=== PATIENT | female | born 1985 | race African-American/Black ===

== ENCOUNTER 2017-09-13 01:35 | Inpatient (IN) | payer OTHER ==
[~2017-09-13] VITALS: Ht 160 cm; Wt 116.6 kg
[~2017-09-13 01:35] MED LIST: AFRIN30 ML NASB; AZITHROMYCIN250 M1 PO; BACTRIM DS TAB1 EACH PO; CIPRO 500MG TA500 MG PO; CYCLOBENZAPRINE10 M1 PO; DEXAMETHASONE4 M1 PO; DOXYCYCLINE MO100 M2 PO; EXCEDRIN MIGRA1 EAC1 PO; FLONASE ALLERG9.9 ML NASB; FLUCONAZOLE150 MG PO; HYDROCODON-ACE1 EAC2 PO; IBUPROFEN800 M1 PO; LEVAQUIN500 M1 PO; MACROBID100 MG PO; MIRENA1 EACH; NAPROSYN500 M1 PO; PREDNISONE50 M1 PO; PROAIR HFA8.5 GM INH; TESSALON PERLE100 M1 PO; TRAMADOL HCL50 M1 PO; VITAMIN D250000 UNIT PO; ZITHROMAX250 M2 PO
--- NOTE | 2017-09-13 14:30 | Admission Core Measures ---
Acute Coronary Syndrome (CM) ACS Core Measures Acute Coronary Syndrome Diagnosis No Congestive Heart Failure (NEW) CHF Core Measures Congestive Heart Failure Diagnosis No Cerebrovascular Accident CVA Core Measures CVA/TIA Diagnosis No Venous Thromboembolism VTE Core Jovanny (View Protocol) VTE Risk Factors Surgery No Mechanical VTE Prophylaxis d/t N/A MechProphylax Ordered No VTE Pharm Prophylaxis d/t NA PharmProphylax ordered Problem List As ranked by this Provider includes Assessment & Plan 1. S/P laparoscopic sleeve gastrectomy 2. Morbid obesity HOME MEDS Home Med List Azithromycin (Zithromax) 250 MG TABLET 1 DP PO AD pharyngitis Ergocalciferol (Vitamin D2) (Vitamin D2) 50,000 UNIT CAPSULE 1 CAP PO QSUN SUPPLEMENT (Reported)
--- NOTE | 2017-09-13 14:58 | Surg Short-stay <48hrs Dis Sum ---
See Addendum Visit Information Visit Dates Admission Date: 09/13/17 Discharge Date: 09/15/17 Surgical Short Stay DC Summary Admission Diagnosis: MORBID OBESITY Final Diagnosis: MORBID OBESITY Procedure(s): Laparoscopic sleeve gastrectomy (09/13/17) Summary/Significant Findings: Electively scheduled laparoscopic sleeve gastrectomy 09/13/[address]Craig Casas for history of morbid obesity. Stage 1 diet started post-operatively. Upper gi study post-op day#1 to rule out leak / obstruction. Pain control transitioned from iv to oral medication. She had significant nausea post-op day#1, which improved through post-op day#2. Tolerating stage 1 bariatric diet prior to discharge home. Lovenox teaching done prior to discharge, according to the pre- operative risk assessment. Condition at Discharge: stable Discharge Disposition: home or self care Discharge instructions provided to patient/family: Yes Post discharge follow-up plan: one week follow up with Copies to: Norman GORDON,Norman
--- NOTE | 2017-09-13 15:01 | Patient Discharge Instructions ---
Discharge Instructions General Discharge Information You were seen/treated for: morbid obesity You had these procedures: laparoscopic sleeve gastrectomy (09/13/17) Watch for these problems: fever>101.3, increased pain, redness/swelling/drainage, dizziness, shortness of breath, chest pains No bath, but you may shower: Yes Other wound care: ok to remove outer dressings. leave white steri strips in place. keep incisions clean & dry. Diet Continue normal diet: No Recommended Diet: Bariatric Additional DIET Information: weekly bariatric stage diet advancement as directed, as tolerated Activity Full Activity/No Limits: No Activity Self Limited: Yes Pounds, do NOT lift more than: 10 Other activity limits: no heavy lifting. no strenuous activity. Additional ACTIVITY Info: continue to walk frequently Acute Coronary Syndrome Inclusion Criteria At DC or during hospital stay patient has or had the following: ACS DIAGNOSIS No Discharge Core Measures Meds if any: Prescribed or Continued at Discharge Meds if any: NOT Prescribed or Continued at Discharge Congestive Heart Failure Inclusion Criteria At DC or during hospital stay patient has or had the following: CHF DIAGNOSIS No Discharge Core Measures Meds if any: Prescribed or Continued at Discharge Meds if any: NOT Prescribed or Continued at Discharge Cerebrovascular accident Inclusion Criteria At DC or during hospital stay patient has or had the following: CVA/TIA Diagnosis No Discharge Core Measures Meds if any: Prescribed or Continued at Discharge Meds if any: NOT Prescribed or Continued at Discharge Venous thromboembolism Inclusion Criteria VTE Diagnosis No VTE Type NONE VTE Confirmed by (Test) NONE Discharge Core Measures - Per Current guidelines, there needs to be overlap - treatment for the first 5 days of Warfarin therapy. - If discharged on Warfarin prior to 5 days of - overlap therapy, the patient will need to be - assessed for post discharge needs including - *Post discharge parental anticoagulation - *Warfarin and/or parental anticoagulation education - *Follow up date to check INR post discharge At least 5 days overlap therapy as Inpatient No Meds if any: Prescribed or Continued at Discharge Note: Overlap Therapy is Warfarin and Anticoagulant Meds if any: NOT Prescribed or Continued at Discharge
[2017-09-13] MEDS ORDERED: HYCET 7.5 MG-3473 ML PO (15:02)
[2017-09-13] MEDS ORDERED: PROTONIX40 M3 PO (15:02)
--- NOTE | 2017-09-13 18:37 | Operative Report ---
Operative/Inv Procedure Report Surgery Date: 09/13/17 Name of Procedure: Laparoscopic sleeve gastrectomy Pre-Operative Diagnosis: Morbid obesity BMI of 44 Post-Operative Diagnosis: Same Estimated Blood Loss: less than 50ml Surgeon/Tube Making Machine Operator: Yessenia GORDON,Jamir SOOD Anesthesia: general endotracheal tube, block IV Fluids: Lactated Ringer's Implants: None Urine Output: Not measured Drains: None Specimens: Portion of stomach Complications: None Condition: Stable Operative Indication: Please see admitting history and physical Operative/Procedure Note Note: After informed consent and proper identification the patient was taken the operating room and placed on the operating room table in the supine position. Venodyne stockings were applied. Patient underwent a general endotracheal anesthetic. The abdomen was prepped and draped in normal sterile fashion after the patient underwent a tap block by anesthesia. Using a 0 5 mm Stortz laparoscope and a 1 cm incision left upper quadrant we entered the abdominal cavity without difficulty and insufflated with 14 mm of CO2 pressure. Next we placed additional trochars under direct visualization a 5 mm trocar in the left subcostal margin a 5 mm trocar in the right subcostal margin 15 mm trocar in the right midabdomen and then we changed out the 5 mm trocar that we entered within the left upper quadrant to 12 mm trocar. We had excellent visualization we had anesthesia place an orogastric tube and decompress the stomach and then remove it using a Excision Scalpel We Took down the Vascular Attachments along the Greater Curvature the Stomach 6 Cm from the Pylorus Opposite the Angularis All the Way up to the Angle of His Dissected the Fundus of the Stomach off of the Left Georges the Patient Had Very Straightforward Anatomy the Fundus of the Stomach Was Easy to Take off of the Left Georges It Was Not Stuck in or Adherent to the Spleen. Were Careful Not to Injure the Spleen and Splenic Vessels or Pancreas. We Then Made an Anesthesia Placed a 40 Malay Bougie and Using This As a Guide We Began to Staple with a Digitwhiz Hand-Held Endo OLMAN Stapler We Used to 60 Cm Black Blue Cartridges Was Seen Guard Followed by 2 per below Cartridges Seem to Guard to Completely Transect the Remnant Stomach from Newly Created Sleeve. Removed the Remnant Stomach and a 15 Endo Catch Bag Checked There Is No Active Bleeding Removed the Liver Retractor Removed the Bougie Removed All Trochars under Direct Visualization. Patient Remained Stable Was Extubated and Taken the Recovery Room in Stable Condition Findings: Smooth liver no hiatal hernia Discharge Disposition: PACU
[2017-09-13 21:02] VITALS: BP 130/70
[2017-09-13 21:05] VITALS: BP 130/70
[2017-09-14 00:46] VITALS: BP 155/88
--- NOTE | 2017-09-14 00:50 | PN- General Surgery ---
Subjective Subjective: Patient doing fair. She reports that every time she gets woken up she has nausea and vomiting which has not been receptive to Zofran or a recent dose of Decadron. Pain is moderately controlled. Otherwise she denies any other issues or complaints. No other concerns per nursing. Objective Vital Signs and I&Os Vital Signs Date Time Temp Pulse Resp B/P B/P Pulse O2 O2 Flow FiO2 Mean Ox Delivery Rate 09/13 2200 98 Nasal 2.0L Cannula 09/13 2104 98 Nasal 2.0L Cannula 09/13 2104 97.9 72 18 130/70 98 Nasal 2.0L Cannula 09/13 2101 97.9 72 18 130/70 98 Nasal 2.0L Cannula 09/13 2101 98 Nasal 2.0L Cannula Intake & Output 09/14 0800 09/14 0000 09/13 1600 09/13 0800 09/13 0000 09/12 1600 Intake Total 150 Output Total 125 Balance 25 Intake, IV 145 Intake, Oral 5 Number 0 Bowel Movements Output, 125 Emesis Output, Urine 0 Patient 257 lb Weight Weight Reported by Patient Measurement Method Physical Exam: Gen.: Alert, awake, appears uncomfortable Abdomen: Obese, soft, appropriately tender palpation, incisions are clean, dry, and intact with glue in place Extremities: No clubbing, cyanosis, or edema Current Medications: Current Medications Sig/Celestino Start time Last Medication Dose Route Stop Time Status Admin Acetaminophen 1,000 MG Q6H 09/14 0330 AC N/A 1 UNIT IV 09/14 1544 Acetaminophen 1,000 MG Q6 09/13 1800 AC 09/13 N/A 1 UNIT IV 09/14 1214 2130 Acetaminophen 1,000 MG .STK-MED ONE 09/13 1214 DC IV 09/13 1215 Acetaminophen 1,000 MG Q6H 09/13 0330 CAN N/A 1 UNIT IV 09/14 0500 Clindamycin 600 MG IQ8 09/14 0000 AC 09/14 Dextrose/Water 50 ML IV 09/14 0829 0027 Clindamycin 600 MG ONCE 09/13 0000 DC Dextrose/Water 50 ML IV 09/13 2359 Dexamethasone 8 MG ONCE PRN 09/13 2114 AC 09/13 IV PUSH 2301 Dexamethasone 4 MG .STK-MED ONE 09/13 1215 DC IM 09/13 1216 Dextrose/Sodium 1,000 ML Q8H 09/13 2115 AC 09/13 Chloride IV 2143 Fentanyl Citrate 250 MCG .STK-MED ONE 09/13 1214 DC IM 09/13 1215 Heparin Sodium 5,000 UNIT Q8 09/13 2200 AC 09/13 (Porcine) SC 2302 Heparin Sodium 0 .STK-MED ONE 09/13 1445 DC (Porcine) .ROUTE Hydrocodone Bitart/ 15 ML Q4-6 PRN PRN 09/14 1400 AC Acetaminophen PO Hydromorphone HCl 2 MG .STK-MED ONE 09/13 1214 DC IM 09/13 1215 Midazolam HCl 2 MG .STK-MED ONE 09/13 1214 DC IM 09/13 1215 Morphine Sulfate 2 MG Q4-6 PRN PRN 09/13 2115 AC 09/13 IV 2140 Ondansetron HCl 4 MG Q6P PRN 09/13 211 AC IV Ondansetron HCl 4 MG .STK-MED ONE 09/13 1215 DC IM 09/13 1216 Pantoprazole Sodium 40 MG DAILY 09/14 0900 AC IV Promethazine HCl 25 MG Q4P PRN 09/13 2315 AC 09/13 IV 09/20 2314 2351 Simethicone 40 MG Q6P PRN 09/13 2115 AC PO Results Last 48 Hours of Labs: Laboratory Tests 09/13 1401 Urines Urine Test NEGATIVE Assessment/Plan Assessment/Plan This is a 32-year-old female with a past medical history significant for morbid obesity presented electively for laparoscopic sleeve gastrectomy today. Nothing by mouth/IV fluids When necessary analgesics and antiemetics Ambulate/IS/turn, cough, and deep breathing techniques GI/DVT prophylaxis Upper GI in the morning given nausea and vomiting Will discuss with Dr. Casas Core Measures Venous Thromboembolism VTE Risk Factors Surgery No Mechanical VTE Prophylaxis d/t N/A MechProphylax Ordered No VTE Pharm Prophylaxis d/t NA PharmProphylax ordered
[2017-09-14 04:47] VITALS: BP 145/80
--- NOTE | 2017-09-14 07:05 | PN- Student ---
Cherelle Palafox 09/14/17 0655: Subjective Subjective: Pt states this morning that she is having a lot of nausea everytime she awakens and had one episdoe of hematemesis last night right around 11 pm after recieving zofran. Pt does have 5/10 incisional site pain which she says its uncomfortable but tolerable. Pt was oob to the bathroom and able to urinate. Pt has no had flatus/bm since yesterday. Pt denies fever, chills, sweats, body aches, SOB, chest pain, leg pain/swelling. Objective Objective: Vital Signs Date Time Temp Pulse Resp B/P B/P Pulse O2 O2 Flow FiO2 Mean Ox Delivery Rate 09/14 0447 98.2 78 20 145/80 100 Nasal 2.0L Cannula 09/14 0400 100 Nasal 2.0L Cannula 09/14 0046 97.6 105 18 155/88 100 Nasal 2.0L Cannula 09/14 0000 94 Nasal 2.0L Cannula 09/14 0000 94 Nasal 2.0L Cannula 09/130 98 Nasal 2.0L Cannula 09/13 2104 98 Nasal 2.0L Cannula 09/13 2104 97.9 72 18 130/70 98 Nasal 2.0L Cannula 09/13 2101 97.9 72 18 130/70 98 Nasal 2.0L Cannula 09/13 2101 98 Nasal 2.0L Cannula Laboratory Tests 09/13/17 1401: Urine Test NEGATIVE Orders Procedure Date/time Status Nothing by Mouth 09/14 B Active XRY-UPPER GI SERIES 09/14 0800 Active MAGNESIUM 09/14 0600 Active GLUCOSE 09/14 0600 Active CBC WITHOUT DIFFERENTIAL 09/14 0600 Active BASIC ELECTROLYTES PLUS BUN&CR 09/14 0600 Active Bariatric Diet - Stage 1 09/13 D Complete Weight 09/13 2151 Complete Vital Signs 09/13 2150 Active Teach/Educate 09/13 2150 Active Pain Treatment and Response 09/13 2150 Active Nutritional Intake, Monitor 09/13 2150 Active Isolation 09/13 2150 Active Intake & Output 09/13 2150 Active Patient Care Conference 09/13 2150 Active Activity/Ambulation 09/13 2150 Active TRC EVALUATION (GEN) 09/13 2109 Active Pathway - chart 09/13 2109 Active Admit to inpatient 09/13 2109 Active Patient Data 09/13 2109 Active Wound Care/Dressing 09/13 2109 Active VTE Mechanical Prophylaxis 09/13 2109 Active Vital Signs 09/13 2109 Active Nursing RT Care 09/13 2109 Active Nursing Misc 09/13 2109 Active Intake & Output 09/13 2109 Active Activity/Ambulation 09/13 2109 Active NUTRITIONAL CONSULT 09/13 2109 Active PATHOLOGY SPECIMEN 09/13 1757 Active Code Status 09/13 1442 Active TRANSFER ORDERS 09/13 1430 Complete URINE 09/13 1401 Complete PHARMACY COMMUNICATION FORM 09/13 UNK Active Gen: O&Ax3, no apparent distress HEENT: PERRL, oropharynx clear, moist Lungs: CTA throughout Heart: S1 and S2 normal, RRR Abdomen: soft, tender at port sites, all incisions are dry, intact, w no darinage, non-distended LE: no edema Assessment/Plan Assessment: Pt is a 32 yo female with morbid obesity that is POD 1 from an elective lap sleeve gastrectomy. Plan: -Pt is recieving zofran prn for nausea, continue -pt does not have a sams in place and was able to urinate 600cc last night -pt reicieved 1 dose of clinda yesterday, will have one more today -awaiting results of AM labs still -encourage ambulation today and OOB -Pt will need IS at bedside -Remain NPO as pt will go for Upper GI series today -Protonix for GI ppx -ALPS in place for dvt ppx Apryl Aviles 09/14/17 0719: Assessment/Plan Plan: AGREE WITH ABOVE INDIGO-S NOTE will order lovenox teaching, as she did have a prescription filled pre-op and will need to continue this at home, when discharged f/u upper gi and labs will d/w
[2017-09-14] MEDS ORDERED: LOVENOX40 MG/0.1 SC (07:23)
[2017-09-14 08:02] LABS: ABSOLUTE BASOPHIL COUNT 0 /CUMM (0.0-0.2); ABSOLUTE EOSINOPHIL COUNT 0 /CUMM (0.0-0.7); ABSOLUTE GRANULOCYTE CT 6.4 /CUMM (1.4-6.5); ABSOLUTE LYMPH COUNT 0.6 /CUMM (1.2-3.4); ABSOLUTE MONOCYTE COUNT 0.1 /CUMM (0.10-0.60); BASOPHIL % 0 % (0.0-2.0); EOSINOPHIL % 0.2 % (0-5); HEMATOCRIT 39.7 % (37-47); MEAN CORPUSCULAR HGB 29.8 PG (27.0-31.0); MEAN CORPUSCULAR HGB CONC 33.8 G/DL (33.0-37.0); MEAN CORPUSCULAR VOLUME 88.3 FL (81.0-99.0); MEAN PLATELET VOLUME 11.8 FL (7.4-10.4); PLATELET COUNT 207 /CUMM (130-400); RBC DISTRIBUTION WIDTH 13.9 % (11.5-14.5)
[2017-09-14 08:36] LABS: GRANULOCYTE % 90.4 % (42.2-75.2)
[2017-09-14 09:53] LABS: WHITE BLOOD CELL COUNT 7.1 /CUMM (4.8-10.8)
--- NOTE | 2017-09-14 10:46 | RADIOLOGY REPORT ---
EXAMINATION: FLUOROSCOPY UPPER GI WITH GASTROGRAFIN WITH KUB CLINICAL INFORMATION: 1 day status post sleeve gastrectomy. Postoperative evaluation. Rule out leak/obstruction. COMPARISON: CT scan of the abdomen and pelvis dated 07/27/2015. TECHNIQUE: A preliminary chief estimator view of the abdomen was performed on 2 images. A limited Gastrografin upper GI study was performed using 30 ml of Gastroview with the patient in the semiupright position. Multiple (4) spot films and 6 cine fluoroscopy runs were acquired. FINDINGS: The preliminary chief estimator views of the abdomen demonstrates postsurgical suture line in the epigastric region. Normal bowel gas pattern is seen without abnormal bowel distention noted. Intrauterine device is seen in place. The evaluation is limited, as the patient felt nauseous and vomited immediately after ingesting the oral Gastroview contrast, leaving only a small amount of contrast in the stomach. Esophageal distensibility and motility is grossly normal. The GE junction is located below the level of the diaphragm and no GE reflux is seen on these limited images with suboptimal distention of the stomach. The remnant gastric pouch is grossly normal with no abnormal distention or contrast leak seen. There is slightly slowed emptying of contrast into the duodenum, which is unremarkable in appearance. FLUOROSCOPY TIME: 51 seconds. IMPRESSION: Limited assessment as discussed above. No evidence of leak or obstruction seen.
[2017-09-14 13:35] VITALS: BP 128/71
[2017-09-14 22:29] VITALS: BP 132/82
[2017-09-15 06:20] VITALS: BP 138/90
[2017-09-15] MEDS ORDERED: PROTONIX40 M3 PO (07:27)
[2017-09-15] MEDS ORDERED: HYCET 7.5 MG-3473 ML PO (07:27)
--- NOTE | 2017-09-15 07:28 | PN- Student ---
See Addendum Cherelle Palafox 09/15/17 0720: Subjective Subjective: This morning the pt is feeling a lot better than yesterday. There were no major overnight events. Pt hasn't had a BM or flatus yet, but has been oob to the bathroom and urinating. Pt's n/v is significantly improved this morning. Pt's only complaint at this time is what she describes as "gas pain." Pt denies any other symptoms. Objective Objective: Intake & Output 09/15 0800 09/15 0000 09/14 1600 Intake Total 2688 648 8368 Output Total 900 1000 2000 Balance 100 -175 -510 Intake, IV 4492 326 6943 Intake, Oral 150 60 Output, Urine 900 1000 1999 Gen: O&Ax3, laying in bed comfortably, no apparent distress Lungs: CTA throughout Heart: S1 and S2 normal, RRR Abdomen: incisional sites dry, intact, no drainage, abdomen soft, non-tender, non-distended, hyperactive bs present LE: no edema, nontender to palp Assessment/Plan Assessment: Pt is a 32 yo female POD 2 s/p sleeve gastrectomy. -Abx x2 are complete -Lovenox sq and ALPS for dvt ppx, pt instructd on how to use at home -Pt tolerating clear diet this AM, can likely advance to full today and pt may be ready for d/c today, will discuss w/ attending -Pt encouraged to get oob, and use IS -GI series yesterday showed no leak/perforation, but study was limited -Protonix for GI ppx Signed LOWELL Karimi Jennifer 09/15/17 0748: Assessment/Plan Assessment: agree with above PA-S note nausea resolved encouraged stage 1 bariatric diet encouraged oob/ambulation dulcolax ME x 1 tolerating hycet prn pain continue protonix - gi ppx lovenox teaching done d/c home today will d/w
[2017-09-15 14:36] VITALS: BP 132/84
[2017-09-15 22:38] VITALS: BP 131/80
[2017-09-16 06:35] VITALS: BP 115/66
--- NOTE | 2017-09-16 07:22 | PN- Bariatrics ---
Subjective Subjective: Nausea resolved after stopping isopure. Tolerating stage 1 diet. Passing some flatus. No bm yet. Ambulating without difficulty. No dizziness. No shortness of breath. No chest pains. She understands lovenox injections, and has prescription to continue these at home. Objective Vital Signs and I&Os Vital Signs Date Time Temp Pulse Resp B/P B/P Pulse O2 O2 Flow FiO2 Mean Ox Delivery Rate 09/16 0635 98.2 55 20 115/66 97 Room Air 09/15 2238 98.1 56 16 131/80 96 Room Air 09/15 2200 98 Room Air 09/15 1436 98.7 53 16 132/84 97 Room Air 09/15 1400 97 Room Air Intake & Output 09/16 0800 09/16 0000 09/15 1600 09/15 0800 09/15 0000 09/14 1600 Intake Total 1315 1390 8753 446 0957 Output Total 800 1000 1150 1000 1999 Balance 515 390 95 -175 -510 Intake, IV 1000 1000 7670 459 6042 Intake, Oral 315 390 120 150 60 Number 0 1 0 Bowel Movements Output, Urine 800 1000 1150 1000 1999 Physical Exam: General - alert & oriented x 3. comfortable. no acute distress. Lungs - clear bilaterally. no w/r/r. Cardiac - s1s2. reg. Abdomen - soft. nisa-incisional tenderness, as expected. incisions approximated with skin glue. Extremities - warm bilaterally. no w/r/r. calves soft and nontender b/l. Current Medications: Current Medications Sig/Celestino Start time Last Medication Dose Route Stop Time Status Admin Bisacodyl 10 MG ONCE ONE 09/15 0730 DC 09/15 MT 09/15 0731 0837 Dexamethasone 8 MG ONCE ONE 09/15 1215 DC IV PUSH 09/15 1216 Dexamethasone 8 MG ONCE PRN 09/13 2114 AC 09/15 IV PUSH 1250 Dextrose/Sodium 1,000 ML Q8H 09/13 2114 AC 09/16 Chloride IV 0440 Heparin Sodium 5,000 UNIT Q8 09/13 2199 AC 09/16 (Porcine) SC 0537 Hydrocodone Bitart/ 15 ML Q4-6 PRN PRN 09/14 1400 AC 09/15 Acetaminophen PO 0445 Morphine Sulfate 2 MG Q4-6 PRN PRN 09/13 2114 AC 09/14 IV 0432 Ondansetron HCl 4 MG Q6P PRN 09/13 2115 AC 09/14 IV 1148 Pantoprazole Sodium 40 MG DAILY 09/14 0900 AC 09/15 IV 0747 Patient Medication 1 ED ONE ONE 09/15 1745 FL 09/15 Teaching ED 09/15 174 2007 Promethazine HCl 25 MG Q4P PRN 09/13 2315 AC 09/15 IV 09/20 2314 0909 Simethicone 40 MG Q6P PRN 09/13 2115 09/15 PO 0446 Trimethobenzamide HCl 200 MG TID PRN 09/14 0730 09/15 IM 1209 Assessment/Plan Assessment/Plan Pt is a 32 yo female POD#3 s/p sleeve gastrectomy, post-op recurrent nausea resolved s/p stopping isopure tolerating stage 1 (minus isopure) pain controlled oob/ambulating protonix - gi ppx hep sc - dvt ppx lovenox teaching done d/c home today will d/w Core Measures Venous Thromboembolism VTE Risk Factors Surgery No Mechanical VTE Prophylaxis d/t N/A MechProphylax Ordered No VTE Pharm Prophylaxis d/t NA PharmProphylax ordered
[2017-09-16 08:00] VITALS: BP 122/80
[2017-09-16 10:00] VITALS: BP 118/78
== END 2017-09-16 10:58 | DRG 403 ==
LOC: 2NB 01:35 → SDA 01:35 → ENRESERV 18:47 → ENTRNSPT 20:43 → EDTRNSPTSTS 20:56 → 2NB 21:05 → CMPTRNSPT 21:14 → ENPENDDIS 09-15 08:29 → ENTRNSPT 09-16 10:38 → EDTRNSPTSTS 09-16 10:49 → EDTRNSPT 09-16 10:49 → 2NB 09-16 10:58 → CMPTRNSPT 09-16 11:33
PROVIDERS: Physician Assistant
PROC: 0DB64Z3 Excision of Stomach, Percutaneous Endoscopic Approach, Vertical (ICD-10-PCS; principal; 2017-09-13)
PROC: 3E0T3BZ Introduction of Anesthetic Agent into Peripheral Nerves and Plexi, Percutaneous Approach (ICD-10-PCS; principal; 2017-09-13)
DX: E66.01 Morbid (severe) obesity due to excess calories (principal); Z68.42 Body mass index [BMI] 45.0-49.9, adult; K21.9 Gastro-esophageal reflux disease without esophagitis; F17.210 Nicotine dependence, cigarettes, uncomplicated; F41.9 Anxiety disorder, unspecified; G47.00 Insomnia, unspecified; G47.33 Obstructive sleep apnea (adult) (pediatric)
CPT/HCPCS: 2NBP; 36592; 74240; 81025; 82436; 88307; J0131; J1100; J1630; J1644; J2405; J2550; J3250; J3490; J7042